=== PATIENT | female | born 1995 | race American Indian/Alaskan Native ===

== ENCOUNTER 2016-10-20 11:07 | Emergency (ER) | payer SELFPAY ==
[2016-10-20 11:19] VITALS: BP 118/61
[2016-10-20 11:39] LABS: Bilirubin,Urine NEG (Negative)
[2016-10-20 11:40] LABS: Blood,Urine NEG (Negative); Ketones,Urine NEG (Negative); Leukocyte Esterase,Urine SM (Negative); Mucus,Urine 3+ /HPF; Nitrite,Urine NEG (Negative)
--- NOTE | 2016-10-20 12:51 | Emergency Department Report ---
Entered by ELIZABETH BONILLA, acting as scribe for SOFIA VILLARREAL NP. ED Female HPI - General Chief complaint: Urogenital-Female Stated complaint: HEAVY VAGINAL DISCHARGE Time Seen by Provider: 10/20/16 11:45 Source: patient Mode of arrival: Ambulatory Limitations: No Limitations - History of Present Illness Initial comments: 21 y/o female presents to the ED c/o vaginal discharge that began 2 weeks ago. Denies fever, chills, rash, lesions and open sores. Discharge is described as thick, white and malodorous. No alleviating or aggravating factors. NKDA. LMP: . Complaint: vaginal discharge Onset/Timin -: week(s) Radiation: non-radiating Severity: mild Consistency: constant Improves with: none Worsens with: none Are you Now?: No Last Menstrual Period: 09/30/16 EDC: 07/07/17 Associated Symptoms: vaginal discharge. denies: fever/chills, rash, other ( lesions, open sores) - Related Data Previous Rx's Medication Instructions Recorded Last Taken Type metroNIDAZOLE [Flagyl] 500 mg PO Q12HR #14 tab 10/20/16 Unknown Rx Allergies Allergy/AdvReac Type Severity Reaction Status Date / Time No Known Allergies Allergy Unverified 10/20/16 11:18 ED Review of Systems Comment: All other systems reviewed and negative Constitutional: denies: chills, fever Genitourinary: discharge (white thick and malodorous ) Skin: denies: rash, lesions, other (open sores) ED Past Medical Hx - Past Medical History Previous Medical History?: No - Surgical History Past Surgical History?: No - Social History Smoking Status: Never Smoker Substance Use Type: None - Medications Home Medications: Home Medications Medication Instructions Recorded Confirmed Last Taken Type metroNIDAZOLE [Flagyl] 500 mg PO Q12HR #14 tab 10/20/16 Unknown Rx ED Physical Exam - General Limitations: No Limitations General appearance: alert, in no apparent distress - Head Head exam: Present: atraumatic, normocephalic, normal inspection - Eye Eye exam: Present: normal appearance, PERRL, EOMI Pupils: Present: normal accommodation - ENT ENT exam: Present: normal exam, normal orophraynx, mucous membranes moist, TM's normal bilaterally, normal external ear exam - Neck Neck exam: Present: normal inspection, full ROM. Absent: tenderness, meningismus, lymphadenopathy, thyromegaly - Respiratory Respiratory exam: Present: normal lung sounds bilaterally. Absent: respiratory distress, wheezes, rales, rhonchi, chest wall tenderness, accessory muscle use - Cardiovascular Cardiovascular Exam: Present: regular rate, normal rhythm. Absent: systolic murmur, diastolic murmur, rubs, gallop - GI/Abdominal GI/Abdominal exam: Present: soft, normal bowel sounds. Absent: tenderness, guarding, rebound - External exam: Present: normal external exam, erythema (mild). Absent: lesions , lacerations, ecchymosis, bleeding Speculum exam: Present: normal speculum exam, erythema (mild), vaginal discharge (white thick malodorous ). Absent: cervical discharge, vaginal bleeding, foreign body, tissue, laceration Bi-manual exam: Present: normal bi-manual exam. Absent: cervical motion tendernes, adnexal tenderness, adnexal mass, uterine enlargement, uterine tenderness - Extremities Exam Extremities exam: Present: normal inspection, full ROM. Absent: tenderness, normal capillary refill, pedal edema, joint swelling, calf tenderness - Back Exam Back exam: Present: normal inspection, full ROM. Absent: tenderness, CVA tenderness (R), CVA tenderness (L), muscle spasm, paraspinal tenderness, vertebral tenderness, rash noted - Neurological Exam Neurological exam: Present: alert, oriented X3 - Psychiatric Psychiatric exam: Present: normal affect, normal mood - Skin Skin exam: Present: warm, dry, intact, normal color. Absent: rash - Other Other exam information: Assistant Operator present during external/speculum/bi-manual exam Elizabeth Bonilla ED Course Vital Signs 10/20/16 11:14 Temperature 99 F Pulse Rate 81 Respiratory 15 Rate Blood Pressure 118/61 Blood Pressure 118/67 [Left] O2 Sat by Pulse 100 Oximetry ED Medical Decision Making - Lab Data Laboratory Tests 10/20/16 11:20 Urine Color Yellow Urine Turbidity Cloudy Urine pH 6.0 Ur Specific [place] 1.026 Urine Protein 30 mg/dl Urine Glucose (UA) Neg Urine Ketones Neg Urine Blood Neg Urine Nitrite Neg Urine Bilirubin Neg Urine Urobilinogen 4.0 Ur Leukocyte Esterase Sm Urine WBC (Auto) 1.0 Urine RBC (Auto) 7.0 U Epithel Cells (Auto) 38.0 H Urine Mucus 3+ Urine HCG, Qual Negative - Medical Decision Making pt is a 21 y/o aaf P1,G1,A0 who presents for vaginal discharge white thick malodorous x 2 weeks last contact 1 1/2 months ago, LMP 09/30/2016, pt denies abdominal pain no vaginal pain no pelvic pain no rash no lesions no open sores vaginal exam as noted no ulcers no lesion no open sores no cmt moderate vaginal erythema white thick discharge is noted, malodorous as stated by patient wet prep, GC/CH cultures pending plan tx for BV flagyl 500 mg po bid x 7 days pt with follow up with current inventory coordinator as scheduled, will notify pt if Gc/Ch are positive. Wet prep pos Clue Cells, hcg: neg , will tx for bv as planned pt verbalized agreement and understanding with discharge plan. ED Disposition Clinical Impression: BV (bacterial vaginosis) Disposition: DC-01 TO HOME OR SELFCARE Is pt being admited?: No Does the pt Need Aspirin: No Condition: Good Instructions: Bacterial Vaginosis (ED) Prescriptions: metroNIDAZOLE [Flagyl] 500 mg PO Q12HR #14 tab Referrals: PRIMARY CARE, [Primary Care Provider] - 3-5 Days Forms: STI Treatment and Prevention, Work/School Release Form(ED) Time of Disposition: 12:51 This documentation as recorded by the IRENE soria ELIZABETH,accurately reflects the service I personally performed and the decisions made by me, SOFIA VILLARREAL, DIRECTOR EPIDEMIOLOGY.
== END 2016-10-20 13:10 | disposition home or self-care (01) ==
LOC: ED 11:07
DX: N76.0 Acute vaginitis (principal)
CPT/HCPCS: 81001; 81025; 87210; 87591

== ENCOUNTER 2016-12-25 06:08 | Emergency (ER) | payer SELFPAY ==
[2016-12-25 06:54] VITALS: BP 120/74
[2016-12-25 08:03] LABS: Bacteria,Urine 1+ /HPF (Negative); Bilirubin,Urine NEG (Negative); Blood,Urine NEG (Negative); Ketones,Urine NEG (Negative); Leukocyte Esterase,Urine TR (Negative); Mucus,Urine 3+ /HPF; Nitrite,Urine NEG (Negative); Urobilinogen,Urine < 2.0 mg/dL (<2.0)
[2016-12-25] MEDS ORDERED: XYLOCAINE 1% MPF 5 mL INFILTRATI ONE (09:30)
[2016-12-25] MEDS ORDERED: ROCEPHIN IM ONE (09:30)
[2016-12-25] MEDS ORDERED: ZITHROMAX PO ONE (09:30)
--- NOTE | 2016-12-25 09:36 | Emergency Department Report ---
ED Female HPI - General Chief complaint: Urogenital-Female Stated complaint: VAGINAL DISCHARGE Time Seen by Provider: 12/25/16 07:29 Source: patient Mode of arrival: Ambulatory Limitations: No Limitations - History of Present Illness Initial comments: patient is a 21 y/o female who presents due to vaginal discharge x 2 weeks. Patient also c/o pelvic cramping and vaginal spotting after sexual intercourse. Patient denies any dyspareunia. Patient states that the vaginal discharge is white and malodorous. Patient denies any dysuria, hematuria or frequency. Patient denies any nausea, vomiting to diarrhea. Patient denies any back pain. Patient is G1, P1, A0, L1. LMP 11/10/16. Patient was seen here in September and was prescribed flagyll, patient states that she did not take it because she had a rash after taking the medication. Complaint: vaginal discharge Onset/Timin -: week(s) Severity scale (0 -10): 0 Are you Now?: No Last Menstrual Period: 11/10/16 EDC: 08/17/17 Associated Symptoms: vaginal discharge, abdominal pain (pelvic cramping), other (vaginal spotting after sexual intercourse. ) - Related Data Sexually active: Yes Previous Rx's Medication Instructions Recorded Last Taken Type Clindamycin [Clindamycin CAP] 300 mg PO BID #28 capsule 12/25/16 Unknown Rx Allergies Allergy/AdvReac Type Severity Reaction Status Date / Time metronidazole [From Flagyl] Allergy Hives Verified 12/25/16 06:44 ED Review of Systems ROS: Stated complaint: VAGINAL DISCHARGE Other details as noted in HPI Comment: All other systems reviewed and negative Constitutional: no symptoms reported. denies: chills, fever, malaise Respiratory: no symptoms reported Gastrointestinal: denies: abdominal pain, nausea, vomiting, diarrhea, constipation Genitourinary: discharge, other (vaginal spotting after sexual intercourse. ). denies: urgency, dysuria, frequency, hematuria, abnormal menses, dyspareunia Musculoskeletal: denies: back pain Skin: denies: rash Neurological: denies: headache, weakness ED Past Medical Hx - Past Medical History Previous Medical History?: No - Surgical History Past Surgical History?: No - Social History Smoking Status: Never Smoker - Medications Home Medications: Home Medications Medication Instructions Recorded Confirmed Last Taken Type Clindamycin [Clindamycin CAP] 300 mg PO BID #28 capsule 12/25/16 Unknown Rx ED Physical Exam - General Limitations: No Limitations (yellow copious discharge, no CMT, no adnexal tenderness. ) General appearance: alert, in no apparent distress - Head Head exam: Present: atraumatic, normocephalic, normal inspection - Eye Eye exam: Present: normal appearance - GI/Abdominal GI/Abdominal exam: Present: soft, normal bowel sounds. Absent: distended, tenderness, guarding, rebound, rigid - External exam: Present: normal external exam. Absent: erythema, swelling, lesions, lacerations, ecchymosis, bleeding Speculum exam: Present: vaginal discharge, cervical discharge. Absent: normal speculum exam, erythema, vaginal bleeding, foreign body, tissue, laceration Bi-manual exam: Present: normal bi-manual exam. Absent: cervical motion tendernes, adnexal tenderness, adnexal mass, uterine enlargement, uterine tenderness - Extremities Exam Extremities exam: Present: normal inspection, full ROM - Back Exam Back exam: Present: normal inspection, full ROM - Neurological Exam Neurological exam: Present: alert, oriented X3 - Skin Skin exam: Present: warm, dry, intact ED Course Vital Signs 12/25/16 06:46 Temperature 98.2 F Pulse Rate 73 Respiratory 20 Rate Blood Pressure 120/74 O2 Sat by Pulse 100 Oximetry ED Medical Decision Making - Lab Data Lab Results 12/25/16 Range/Units 07:34 Urine Color Yellow (Yellow) Urine Turbidity Clear (Clear) Urine pH 5.0 (5.0-7.0) Ur Specific [place] 1.024 (1.003-1.030) Urine Protein 30 mg/dl (Negative) mg/dL Urine Glucose (UA) Neg (Negative) mg/dL Urine Ketones Neg (Negative) mg/dL Urine Blood Neg (Negative) Urine Nitrite Neg (Negative) Urine Bilirubin Neg (Negative) Urine Urobilinogen < 2.0 (<2.0) mg/dL Ur Leukocyte Esterase Tr (Negative) Urine WBC (Auto) 3.0 (0.0-6.0) /HPF Urine RBC (Auto) 3.0 (0.0-6.0) /HPF U Epithel Cells (Auto) 5.0 (0-13.0) /HPF Urine Bacteria (Auto) 1+ (Negative) /HPF Urine Mucus 3+ /HPF Urine HCG, Qual Negative (Negative) - Medical Decision Making patient was in NAD, patient had copious yellow discharge in the vaginal canal. Patient's urine was unremarkable, urine test was negative, wet prep revealed <20 % clue cells. patient refused rocephin injection and only took azithromycin 100mg PO. patient will be discharged with a prescription for cleocin to treat BV due to her reaction to flagyll from the prior visit in September. - Differential Diagnosis bacterial vaginosis, cervicitis, UTI Critical care attestation.: If time is entered above; I have spent that time in minutes in the direct care of this critically ill patient, excluding procedure time. ED Disposition Clinical Impression: Bacterial vaginosis, Cervicitis Disposition: TO HOME OR SELFCARE Is pt being admited?: No Does the pt Need Aspirin: No Condition: Good Instructions: Bacterial Vaginosis (ED), Cervicitis (ED) Additional Instructions: take cleocin as prescribed. follow up with the provided MANAGER ENVIRONMENTAL or [facility]. Prescriptions: Clindamycin [Clindamycin CAP] 300 mg PO BID #28 capsule Referrals: BRENDON CARIAS MD [Staff Physician] - 3-5 Days [facility] [Outside] - 3-5 Days Forms: STI Treatment and Prevention Time of Disposition: 09:37
== END 2016-12-25 10:17 | disposition home or self-care (01) ==
LOC: ED 06:08
DX: N76.0 Acute vaginitis (principal); N72 Inflammatory disease of cervix uteri
CPT/HCPCS: 81001; 81025; 87210; 87591; 99284; J0696

== ENCOUNTER 2019-05-28 06:45 | Emergency (ER) | payer OTHER ==
--- NOTE | 2019-05-28 08:12 | Emergency Department Report ---
Abscess Boil HPI - HPI Chief Complaint: Skin/Abscess/Foreign Body Stated Complaint: INSECT BITE Time Seen by Provider: 05/28/19 08:09 Duration: 5 Days Location: Sacral/Pilonidal Severity: Mild History: Yes Pain, Yes Purulent Drainage, Yes Insect Bite, No Fever, No Numbness, No Foreign Body, No Previous History HPI: Patient is a 24-year-old -[place] female who comes to the ER today complaining of left buttock pain. She thinks that she was bit by an insect. She has been squeezing the area and pus has been coming out. She states however it is painful. Need to make sure that this is not a pilonidal cyst. Patient is afebrile ambulatory and nontoxic on exam Home Medications: Previous Rx's Medication Instructions Recorded Last Taken Type Ibuprofen [Motrin] 800 mg PO Q8HR PRN #30 tablet 05/28/19 Unknown Rx cephALEXin [Keflex] 500 mg PO Q12HR #20 cap 05/28/19 Unknown Rx Allergies/Adverse Reactions: Allergies Allergy/AdvReac Type Severity Reaction Status Date / Time metronidazole [From Flagyl] Allergy Hives Verified 12/25/16 06:44 ED Review of Systems ROS: Stated complaint: INSECT BITE Other details as noted in HPI Comment: All other systems reviewed and negative ED Past Medical Hx - Past Medical History Previous Medical History?: No Hx Hypertension: No Hx Congestive Heart Failure: No Hx Diabetes: No Hx Deep Vein Thrombosis: No Hx Renal Disease: No Hx Sickle Cell Disease: No Hx Seizures: No Hx Asthma: No Hx COPD: No Hx HIV: No - Family History Family history: no significant - Social History Smoking Status: Never Smoker Substance Use Type: None - Medications Home Medications: Home Medications Medication Instructions Recorded Confirmed Last Taken Type Ibuprofen [Motrin] 800 mg PO Q8HR PRN #30 tablet 05/28/19 Unknown Rx cephALEXin [Keflex] 500 mg PO Q12HR #20 cap 05/28/19 Unknown Rx ED Abscess Boil Physical Exam - Exam General: Vital signs noted. No distress. Alert and acting appropriately. Size: 3 cm Exam: Yes Tenderness, Yes Surrounding Cellulites/Erythema, Yes Normal Neurologic Exam, Yes Normal Circulation, No Fluctuance, No Lymphangitis, No Crepitation, No Heart Murmur I & D Note - I & D Note I & D Note: No I&D required. The wound is draining. Critical care attestation.: If time is entered above; I have spent that time in minutes in the direct care of this critically ill patient, excluding procedure time. ED Medical Decision Making - Medical Decision Making Patient has an open wound on her left buttocks. It is draining. There is surrounding red tissue. She has no fever she is nontoxic. She is ambulatory. No I&D given that the abscess is in fact draining. Patient has been educated on wound care and is being discharged on antibiotics and PCP follow-up. Patient requesting a work note for today. Patient verbalizes understanding of discharge plan of care. RN has been asked to record vital signs that were handwritten on the chart. Vital signs are normal. No tachycardia. No hypotension. And a normal temperature - Differential Diagnosis Rule out pilonidal cyst, abscess, simple insect bite, cellulitis ED Disposition Clinical Impression: Simple abscess Disposition: DC- TO HOME OR SELFCARE Is pt being admited?: No Does the pt Need Aspirin: No Condition: Stable Additional Instructions: epsom salt soaks in tub three times per day med as ordered today follow up with pcp next week to be sure it heals referral below tylenol over the counter can be used for pain Prescriptions: cephALEXin [Keflex] 500 mg PO Q12HR #20 cap Ibuprofen [Motrin] 800 mg PO Q8HR PRN #30 tablet PRN Reason: Pain, Moderate (4-6) Referrals: RAFAEL MORTENSEN MD [Staff Physician] - 3-5 Days Forms: Work/School Release Form(ED) Time of Disposition: 08:12
== END 2019-05-28 08:17 | disposition home or self-care (01) ==
LOC: ED 06:45
DX: L02.818 Cutaneous abscess of other sites (principal); Z88.1 Allergy status to other antibiotic agents; Z79.899 Other long term (current) drug therapy

== ENCOUNTER 2019-11-21 13:24 | Emergency (ER) | payer OTHER ==
[2019-11-21 13:32] VITALS: BP 119/74
== END 2019-11-21 15:18 | disposition left against medical advice (07) ==
LOC: ED 13:24
DX: J02.9 Acute pharyngitis, unspecified (principal); Z53.21 Procedure and treatment not carried out due to patient leaving prior to being seen by health care provider